=== PATIENT | male | born 1980 | race Hispanic/Latino ===

== ENCOUNTER 2024-01-26 08:22 | Emergency (ER) | payer BC, SELFPAY ==
[2024-01-26 08:22] VITALS: BMI 31.8
[2024-01-26 08:23] VITALS: BP 135/87
--- NOTE | 2024-01-26 08:39 | ED.GENMED ---
History of Present Illness
General
Chief Complaint: Skin Problem
Source: patient
Exam Limitations: none
Time Seen by Provider: 01/26/24 08:32
Nursing documentation reviewed up to this point in time: agreed with
Travel History
Have you had any contact with someone who has COVID-19?: No
Do you have any symptoms of coronavirus? Fever > 100 degrees, chills, cough, shortness of breath, sore throat, loss of taste or smell, muscle aches, or headache?: No
History of Present Illness
History of Present Illness:
43-year-old male with a past medical history of anxiety/depression who presents to the emergency department for evaluation of rectal pain. Patient reports onset of symptoms about 5 days ago and they have been constant and progressive since that
time. He says that symptoms were quite severe yesterday and so he decided to go to urgent care and was diagnosed with an abscess; he says he was told it was a perirectal abscess and that he was started on antibiotics (Keflex) which he has taken
times 3 total doses. He feels that pain was worsening despite this and so he came to the emergency room for assessment. He denies any fevers or chills. He denies any other complaints.
Review of Systems
Review of Systems
All Other Systems: ROS reviewed and negative except as documented in HPI and ROS
Constitutional: Denies fever or chills
Respiratory: Denies trouble breathing
Cardiac: Denies chest pain
ABD/GI: Reports other (Rectal pain); Denies abdominal pain, nausea, vomiting, diarrhea or constipated
: Denies flank pain
Musculoskeletal: Denies neck pain or back pain
Neurological: Denies headache
Phy Exam
Physical Exam
Physical Exam:
General: Awake, alert, oriented x3; no acute distress
Head: Normocephalic, atraumatic
Eyes: Conjunctiva normal
Throat: Airway intact, handling secretions
Neck: Trachea midline
Lungs: Comfortably no distress, normal pulse ox, normal respiratory rate
Heart: Regular rate
Abd: Soft, non distended, nontender
Rectal: Patient has tiny approximately 1 cm circumference circular area of erythema, warmth, tenderness at approximately 7 o'clock position from anus; it is about 1.5 cm away from the anus; it is not indurated, there is some slight fluctuance to it
but it is not raised above the surface of the skin
Neuro: No gross deficits
Extremities: Warm and well-perfused
Scores
Heart Failure Risk
Heart Failure Risk Score: Not Applicable
Heart Score for Chest Pain Patients
STEMI patient?: Not applicable
Withdrawal Assessment of Alcohol
Withdrawal Assessment Completed?: Not applicable
Course
Orders/Labs/Results
Orders:
Orders
01/26/24 08:39
CT Abd/pelvis W Iv Cont Urgent
Comment:
Reason For Exam: worsening rectal pain, c/f abscss
01/26/24 09:12
Complete Blood Count/With Diff Urgent
Comprehensive Metabolic Panel Urgent
01/26/24 09:12
01/26/24 09:12
Vital Signs
Initial and Last Documented VS:
Initial Vital Signs
Temp Pulse Resp BP Pulse Ox
36.8 C 69 20 135/87 100
01/26/24 08:23 01/26/24 08:23 01/26/24 08:23 01/26/24 08:23 01/26/24 08:23
Last Documented Vital Signs
Temp Pulse Resp BP Pulse Ox
36.8 C 69 20 135/87 100
01/26/24 08:23 01/26/24 08:23 01/26/24 08:23 01/26/24 08:23 01/26/24 08:23
Procedures
Incision/Drainage/Joint Aspiration
Buttock:
Anethesia: 1% Lidocaine with Epi
Preparation: cleaned with alcohol wipe
Type of procedure: incise
Nature of site: abscess
Description of abscess: less than 3cm
Loculations broken up: Yes
How much fluid was obtained?: small amount
Fluid description: purulent
Treatment: left open for drainage and antibiotics started
MDM/Problems Addressed
Differential Diagnosis Includes:
Perianal/perirectal abscess
MDM/Problems Addressed:
43-year-old male presents with worsening rectal pain�seen in urgent care yesterday and diagnosed with periorbital abscess and was started on antibiotics but pain still worsening and so he came here to the emergency room to be assessed. Vitals are
normal. Exam as above. Does appear to be an abscess but pain is out of proportion to his physical exam�he only has a very small area of localized erythema and point tenderness; does not have a raised abscess. Concern for abscess tracking deeper
perirectal region/pelvis. Will send for a CT of the abdomen pelvis. Will check basic labs. Reassess after the above.
Labs reviewed: CBC and CMP unremarkable. CT abdomen pelvis shows no deep abscess. Performed incision and drainage at bedside with copious purulent drainage expressed. Will change antibiotics to Augmentin. Will provide colorectal surgery referral
as needed. Advised to follow-up with his primary as an outpatient and perform sitz bath's to encourage continued drainage. Patient very comfortable with this plan. Spoke about return precautions and all questions answered.
*Pulse Oximetry
Patient hypoxic: no
*Critical Care Note
Total Time (30-74mins, 75-104mins- exclusive of procedures): Not Applicable
Data Reviewed
Source: patient
ED Attending Note
-
Portions of this chart may have been created with voice recognition software.� Occasional wrong word or��sound alike� substitutions may have occurred due to the inherent limitations of voice recognition software.
Discharge Plan
Departure
Patient Disposition: Home (Routine Discharge)
Date of Disposition: 01/26/24
Time of Disposition: 13:18
Patient with high blood pressure during this ER visit?: No
Discharge Problem:
Abscess, perirectal
Instructions: Anal Abscess and Fistula, Adult (DC)
Prescriptions:
New
amoxicillin-pot clavulanate 875-125 mg tablet
1 tab PO BID 7 Days Qty: 14 0RF
Referrals:
Seun King MD [Active] - As needed (Colorectal surgery)
Connie Crabtree MD [Family Provider] - Call in 1-3 days for appt
Activity Restrictions/Additional Instructions:
Thank you for visiting the Emergency Department at [facility].
1. Please schedule a follow up appointment as directed. Call first thing tomorrow morning to make an appointment.
2. If indicated, please take your medications as instructed and indicated on discharge paperwork.
3. If any of your symptoms do not improve, or persist, or become more severe within 6-12 hours, please return to the emergency department for further care.
4. Please return to the emergency department if you develop a headache, neck pain/stiffness, fever greater than 100.4F, chest pain, shortness of breath, persistent nausea, vomiting, slurred speech, difficulty walking, numbness/tingling, weakness,
signs of infection or any other symptoms that are worrisome to you.
Please call [phone] if you have any questions.
Interventions
Interventions:
*Risk Screen - Suicide Last Done: 01/26/24 08:23
*General Assessment Last Done: 01/26/24 08:23
*Neglect/Abuse Screening Last Done: 01/26/24 08:23
ED-Skin Assessment Last Done: 01/26/24 10:27
Discharge Date and Time
Print Language: KOREAN
[2024-01-26 09:30] LABS: % Basophils 0.7 % (0-2); % Eosinophils 1.2 % (0-6); % Immature Granulocytes 0.1 % (0-0.5); % Lymphocytes 28.8 % (20.5-51.1); % Monocytes 6.5 % (1.7-9.3); % Neutrophils 62.7 % (42.2-75.2); Absolute Basophils 0.1 10^3/uL (0-0.2); Absolute Eosinophils 0.1 10^3/uL (0-0.7); Absolute Monocytes 0.4 10^3/uL (0.1-0.6); Absolute Neutrophils 4.3 10^3/uL (1.4-6.5); Hemoglobin 13.9 g/dL (13.0-18.0); Mean Corp Hgb Conc. 33.9 g/dL (33.0-37.0); Mean Corpuscular Hgb 27.7 pg (27.0-31.0); Mean Corpuscular Volume 81.8 fL (80.0-94.0); Mean Platelet Volume 10.3 fL (7.4-10.4); Nucleated Red Blood Cells % 0 % (-); Platelet Count 194 10^3/uL (130-400); Red Blood Cell Count 5.01 10^6/uL (4.70-6.10); Red Cell Dist. Width 12.9 % (11.5-14.5); White Blood Cell Count 6.8 10^3/uL (4.8-10.8)
[2024-01-26 09:48] LABS: ALT (SGPT) 26 U/L (0-50); AST (SGOT) 23 U/L (17-59); Albumin 3.8 g/dl (3.5-5.0); Alkaline Phosphatase 73 U/L (38-126); Blood Urea Nitrogen 19 mg/dl (9-20); Calcium 9.3 mg/dl (8.4-10.2); Carbon Dioxide 28 mmol/L (22-30); Chloride 106 mmol/L (98-107); Estimated Creatinine Clearance > 125 ml/min; Glucose 92 mg/dl (70-99); Potassium 3.9 mmol/L (3.5-5.1); Sodium 140 mmol/L (135-145); Total Bilirubin 0.7 mg/dl (0.2-1.3); Total Protein 6.7 g/dl (6.3-8.2); eGFR > 60.00
[2024-01-26] MEDS: AUGMENTIN 875 MG/125 MG 1 TABLET PO (13:24)
[2024-01-26 13:32] VITALS: BP 138/88
== END 2024-01-26 13:33 | disposition home or self-care (01) ==
LOC: EMR 08:22
PROVIDERS: EMERGENCY PHYSICIAN Emergency Medicine; FAMILY PHYSICIAN Family Medicine
DX: K61.1 Rectal abscess (principal); F41.9 Anxiety disorder, unspecified; F32.A Depression, unspecified
CPT/HCPCS: 99284; 10060; 74177; 80053; 85025; Q9967

== ENCOUNTER → 2024-01-29 | Outpatient (REF) | payer BC, SELFPAY | LOC: DHSLP | PROVIDERS: ATTENDING PHYSICIAN Family Medicine | DX: G47.33 Obstructive sleep apnea (adult) (pediatric) (principal) | CPT/HCPCS: 95800 ==

== ENCOUNTER → 2024-06-20 06:32 | Day surgery (SDC) | payer BC, SELFPAY | LOC: GI 06:32 | PROVIDERS: ATTENDING PHYSICIAN Internal Medicine Gastroenterology | DX: Z12.11 Encounter for screening for malignant neoplasm of colon (principal); Z86.0100 Personal history of colon polyps, unspecified; K64.8 Other hemorrhoids; K57.30 Diverticulosis of large intestine without perforation or abscess without bleeding; K64.4 Residual hemorrhoidal skin tags; K63.5 Polyp of colon | CPT/HCPCS: 45385; 88305 ==